=== PATIENT | male | born 1940 | race Caucasian/White ===

== ENCOUNTER 2020-11-07 11:36 | Emergency (ER) | payer MEDICARE ==
[2020-11-07 12:51] LABS: HEMOGLOBIN 17.2 gm/dl (14.0-17.5); RED BLOOD COUNT 5.35 M/UL (4.20-5.50)
== END 2020-11-07 15:50 | disposition home or self-care (01) ==
LOC: ER1 11:36
PROVIDERS: Physician Assistant Medical
DX: I60.9 Nontraumatic subarachnoid hemorrhage, unspecified (principal); E78.5 Hyperlipidemia, unspecified; I11.9 Hypertensive heart disease without heart failure; Z79.01 Long term (current) use of anticoagulants
CPT/HCPCS: 70450; 71045; 80053; 82550; 82553; 83874; 84484; 85025; 85610; 85652; 86140; 93005; 99285